=== PATIENT | male | born 1975 | race Caucasian/White ===

== ENCOUNTER 2018-01-19 14:08 | Emergency (ER) | payer BC ==
[2018-01-19] MEDS ORDERED: SODIUM CHLORIDE 0.9% 500 ML 500 ML IV STA (15:01)
[2018-01-19] MEDS ORDERED: MORPHINE SULFATE 4 MG/ML SYRINGE IV STA (15:01)
[2018-01-19] MEDS ORDERED: SODIUM CHLORIDE 0.9% 1,000 ML IV STA ×2 (15:01)
[2018-01-19 15:03] VITALS: RESP 18
--- NOTE | 2018-01-19 15:12 | ED ---
Lower Extremity Injury HPI - General Source: patient Mode of arrival: wheelchair Limitations: no limitations <Pan Guzman - Last Filed: 01/19/18 15:11> <Neto Childs - Last Filed: 01/19/18 18:56> - General Chief Complaint: Extremity Injury, Lower Stated Complaint: Compartment syndrome R calf Time Seen by Provider: 01/19/18 14:52 - History of Present Illness Initial Comments: This 42-year-old white male presented with a complaint of some right leg pain. He states that he stepped off the trunk of his car yesterday and developed the pain acutely. He states that he has had difficulty with ambulation due to the pain. Is much worse with ambulation and better with rest. He does complain of some significant swelling earlier which is improved currently. He is told to come to the ER for evaluation by his provider. They did mention a possibility of compartment syndrome but it is not felt as though he has compartment syndrome. He denies any other injuries or complaints or modifying factors. ( Neto Childs) - Related Data Home Medications Medication Instructions Recorded Confirmed Naproxen Sodium [Aleve] 440 mg PO Q12HR PRN 01/19/18 01/19/18 Allergies Allergy/AdvReac Type Severity Reaction Status Date / Time No Known Allergies Allergy Verified 01/19/18 16:14 Review of Systems ROS Other: All systems not noted in ROS Statement are negative. <Pan Guzman - Last Filed: 01/19/18 15:11> ROS Other: All systems not noted in ROS Statement are negative. <Neto Childs - Last Filed: 01/19/18 18:56> ROS Statement: Those systems with pertinent positive or pertinent negative responses have been documented in the HPI. Past Medical History Past Medical History: No Reported History History of Any Multi-Drug Resistant Organisms: None Reported Past Surgical History: Orthopedic Surgery Past Psychological History: No Psychological Hx Reported Smoking Status: Current every day smoker Past Alcohol Use History: None Reported Past Drug Use History: None Reported <Pan Guzman - Last Filed: 01/19/18 15:11> General Exam Limitations: no limitations <Pan Guzman - Last Filed: 01/19/18 15:11> General appearance: alert, in no apparent distress Extremities exam: Present: other (There is tenderness directly over the right fibular head. There is some mild swelling noted to the right leg proximally. There is no joint line tenderness to the right knee. There is excellent range of motion of the right knee. There is no calf tenderness noted.) Neurological exam: Present: alert, oriented X3. Absent: motor sensory deficit Psychiatric exam: Present: normal affect, normal mood Skin exam: Present: intact. Absent: rash <Neto Childs - Last Filed: 01/19/18 18:56> Vital Signs 01/19/18 01/19/18 14:53 17:48 Temperature 98.5 F Pulse Rate 78 63 Respiratory 18 18 Rate Blood Pressure 121/78 115/62 O2 Sat by Pulse 98 99 Oximetry Medical Decision Making <Pan Guzman - Last Filed: 01/19/18 15:11> - Lab Data Result diagrams: 01/19/18 15:30 01/19/18 15:30 <Neto Childs - Last Filed: 01/19/18 18:56> - Medical Decision Making The patient was seen and examined. All diagnostics are reviewed. Lab results within normal limits. The patient did have an x-ray of the right tibia and fibula no fracture acute osseous abnormality is identified. He had a CT a gram of his right lower extremity and this does not show any acute abnormalities. Overall, the exact cause of his symptoms are not definitively determined. The possibility of a right leg contusion versus strain of his proximal fibula is possible. He is placed in a knee immobilizer and is prescribed some crutches. He is counseled regarding his diagnosis in detail leaves no distress. He does not want any pain medications and will try Aleve and Tylenol at home. He has seen Dr. Phoenix in the past and will be referred to him as well. (Neto Childs) - Lab Data Lab Results 01/19/18 01/19/18 01/19/18 Range/Units 15:30 15:30 15:30 WBC 8.8 (3.8-10.6) k/uL RBC 4.77 (4.30-5.90) m/uL Hgb 15.0 (13.0-17.5) gm/dL Hct 45.9 (39.0-53.0) % MCV 96.3 (80.0-100.0) fL MCH 31.5 (25.0-35.0) pg MCHC 32.7 (31.0-37.0) g/dL RDW 12.5 (11.5-15.5) % Plt Count 178 (150-450) k/uL Neutrophils % 61 % Lymphocytes % 31 % Monocytes % 4 % Eosinophils % 2 % Basophils % 1 % Neutrophils # 5.4 (1.3-7.7) k/uL Lymphocytes # 2.7 (1.0-4.8) k/uL Monocytes # 0.3 (0-1.0) k/uL Eosinophils # 0.2 (0-0.7) k/uL Basophils # 0.1 (0-0.2) k/uL PT (9.0-12.0) sec INR (<1.2) APTT (22.0-30.0) sec Sodium 139 (137-145) mmol/L Potassium 3.8 (3.5-5.1) mmol/L Chloride 108 H (98-107) mmol/L Carbon Dioxide 24 (22-30) mmol/L Anion Gap 7 mmol/L BUN 16 (9-20) mg/dL Creatinine 0.98 (0.66-1.25) mg/dL Est GFR (CKD-EPI)AfAm >90 (>60 ml/min/1.73 sqM) Est GFR (CKD-EPI)NonAf >90 (>60 ml/min/1.73 sqM) Glucose 95 (74-99) mg/dL Plasma Lactic Acid Brett (0.7-2.0) mmol/L Calcium 9.6 (8.4-10.2) mg/dL Phosphorus 3.3 (2.5-4.5) mg/dL Magnesium 2.1 (1.6-2.3) mg/dL Total Bilirubin 1.1 (0.2-1.3) mg/dL AST 18 (17-59) U/L ALT 21 (21-72) U/L Alkaline Phosphatase 61 (38-126) U/L Total Creatine Kinase 155 (55-170) U/L CK-MB (CK-2) 1.1 (0.0-2.4) ng/mL CK-MB (CK-2) Rel Index 0.7 Total Protein 6.9 (6.3-8.2) g/dL Albumin 4.0 (3.5-5.0) g/dL 01/19/18 01/19/18 Range/Units 15:30 15:30 WBC (3.8-10.6) k/uL RBC (4.30-5.90) m/uL Hgb (13.0-17.5) gm/dL Hct (39.0-53.0) % MCV (80.0-100.0) fL MCH (25.0-35.0) pg MCHC (31.0-37.0) g/dL RDW (11.5-15.5) % Plt Count (150-450) k/uL Neutrophils % % Lymphocytes % % Monocytes % % Eosinophils % % Basophils % % Neutrophils # (1.3-7.7) k/uL Lymphocytes # (1.0-4.8) k/uL Monocytes # (0-1.0) k/uL Eosinophils # (0-0.7) k/uL Basophils # (0-0.2) k/uL PT 9.9 (9.0-12.0) sec INR 1.0 (<1.2) APTT 23.2 (22.0-30.0) sec Sodium (137-145) mmol/L Potassium (3.5-5.1) mmol/L Chloride (98-107) mmol/L Carbon Dioxide (22-30) mmol/L Anion Gap mmol/L BUN (9-20) mg/dL Creatinine (0.66-1.25) mg/dL Est GFR (CKD-EPI)AfAm (>60 ml/min/1.73 sqM) Est GFR (CKD-EPI)NonAf (>60 ml/min/1.73 sqM) Glucose (74-99) mg/dL Plasma Lactic Acid Brett 0.7 (0.7-2.0) mmol/L Calcium (8.4-10.2) mg/dL Phosphorus (2.5-4.5) mg/dL Magnesium (1.6-2.3) mg/dL Total Bilirubin (0.2-1.3) mg/dL AST (17-59) U/L ALT (21-72) U/L Alkaline Phosphatase (38-126) U/L Total Creatine Kinase (55-170) U/L CK-MB (CK-2) (0.0-2.4) ng/mL CK-MB (CK-2) Rel Index Total Protein (6.3-8.2) g/dL Albumin (3.5-5.0) g/dL Disposition <Pan Guzman - Last Filed: 01/19/18 15:11> Is patient prescribed a controlled substance at d/c from ED?: No Time of Disposition: 18:54 <Neto Childs - Last Filed: 01/19/18 18:56> Clinical Impression: Strain of right knee and leg Disposition: HOME SELF-CARE Condition: Good Instructions: Knee Sprain (ED), Crutch Instructions (ED) Referrals: Alejandro Landaverde DO [Primary Care Provider] - 01/22/18 Lazaro Phoenix DO [Doctor of Osteopathic Medicine] - 1-2 days
[2018-01-19 15:46] LABS: Basophils # (A) 0.1 k/uL (0-0.2); Basophils % (A) 1 %; Eosinophils # (A) 0.2 k/uL (0-0.7); Eosinophils % (A) 2 %; HCT 45.9 % (39.0-53.0); Lymphocytes # (A) 2.7 k/uL (1.0-4.8); Lymphocytes % (A) 31 %; MCH 31.5 pg (25.0-35.0); MCHC 32.7 g/dL (31.0-37.0); MCV 96.3 fL (80.0-100.0); Mean Platelet Volume 6.8; Monocytes # (A) 0.3 k/uL (0-1.0); Monocytes % (A) 4 %; Neutrophils # (A) 5.4 k/uL (1.3-7.7); Neutrophils % (A) 61 %; Platelet Count 178 k/uL (150-450); RBC 4.77 m/uL (4.30-5.90); RDW 12.5 % (11.5-15.5); WBC 8.8 k/uL (3.8-10.6)
[2018-01-19 15:55] LABS: ALT 21 U/L (21-72); AST 18 U/L (17-59); Alkaline Phosphatase 61 U/L (38-126); Anion Gap 7 mmol/L; Blood Urea Nitrogen 16 mg/dL (9-20); Calcium 9.6 mg/dL (8.4-10.2); Carbon Dioxide 24 mmol/L (22-30); Chloride 108 mmol/L (98-107); Glucose 95 mg/dL (74-99); Magnesium 2.1 mg/dL (1.6-2.3); Phosphorus 3.3 mg/dL (2.5-4.5); Potassium 3.8 mmol/L (3.5-5.1); Sodium 139 mmol/L (137-145); Total Bilirubin 1.1 mg/dL (0.2-1.3); Total Protein 6.9 g/dL (6.3-8.2)
[2018-01-19 15:58] LABS: Partial Thromboplastin Time 23.2 sec (22.0-30.0); Prothrombin Time 9.9 sec (9.0-12.0)
--- NOTE | 2018-01-19 16:03 | US ---
EXAMINATION TYPE: US venous doppler duplex LE RT DATE OF EXAM: 01/19/2018 3:57 PM COMPARISON: NONE CLINICAL HISTORY: Pain. Patient states leg hurt after stepping down from tractor. No redness. No sw elling. No history of blood clots or on blood thinners. SIDE PERFORMED: Right TECHNIQUE: The lower extremity deep venous system is examined utilizing real time linear array sonog gus with graded compression, doppler sonography and color-flow sonography. VESSELS IMAGED: External Iliac Vein (EIV) Common Femoral Vein Deep Femoral Vein Greater Saphenous Vein * Femoral Vein Popliteal Vein Small Saphenous Vein * Proximal Calf Veins (* superficial vessels) Grayscale, color doppler, spectral doppler imaging performed of the deep veins of the right lower ext remity. There is normal flow, compressibility, vascular waveforms. Right Leg: Negative for DVT IMPRESSION: No sonographic evidence of deep venous arthrosis within the right lower extremity.
[2018-01-19 16:18] LABS: Creatine Kinase MB 1.1 ng/mL (0.0-2.4)
[2018-01-19] MEDS ORDERED: RX INFO: IV CONTRAST WAS GIVEN 1 EACH MISC MISCELLANE PRN (16:23)
--- NOTE | 2018-01-19 18:09 | CT ---
EXAMINATION TYPE: CT angio lower extremity RT, with contrast and with 3-D reconstruction renderings DATE OF EXAM: 01/19/2018 5:20 PM COMPARISON: None. HISTORY: Right calf swelling x [address] DLP: 1117 mGycm Automated exposure control for dose reduction was used. TECHNIQUE: Arteriographic phase was performed with IV Contrast, patient injected with 125 mL of Isovu e 370. CT reconstructions. FINDINGS: Aortoiliac inflow is widely patent. There is nonaneurysmal mild generalized atherosclerotic changes consisting of tortuosity and minimal intimal thickening and calcification. No incidental int rapelvic findings. Skeletal structures unremarkable. Ipsilateral right lower extremity: The right MANAGER ER, SFA, profunda femoral, and popliteal are all widely patent and there is a robust three-vessel runoff, with flow entering the foot via the widely patent dorsalis pedis and posterior tibial arteries. Venous structures are unremarkable as seen. Examination of the right calf is negative for soft tissue emphysema or focal fluid. The right and l eft calves have symmetric appearance. No CT attenuation defects.Skeletal structures unremarkable. Contralateral left lower extremity: The left MANAGER ER, SFA, profunda femoral, and popliteal are all widel y patent and there is a robust three-vessel runoff, with flow entering the foot via the widely patent dorsalis pedis and posterior tibial arteries. Venous structures are unremarkable as seen. Skeletal s tructures unremarkable. IMPRESSION: NO ACUTE PROCESS.
[2018-01-19 19:18] VITALS: BP 101/59; PULSE 61; TEMP 98.1
== END 2018-01-19 19:18 | disposition home or self-care (01) ==
LOC: EC 14:08
DX: S86.911A Strain of unspecified muscle(s) and tendon(s) at lower leg level, right leg, initial encounter (principal); F17.200 Nicotine dependence, unspecified, uncomplicated; Z98.890 Other specified postprocedural states; X50.9XXA Other and unspecified overexertion or strenuous movements or postures, initial encounter
CPT/HCPCS: 99284; 96374; 96361 ×2; 36415; 80053; 82550; 82553; 83605; 83735; 84100; 85025; 85610; 85730; 93971; 73706; L1830 ×2; J2270; Q9967